=== PATIENT | female | born 1940 | race Caucasian/White ===

== ENCOUNTER 2017-12-31 22:41 | Inpatient (IN) | payer MEDICARE, MEDICAID ==
[~2017-12-31] VITALS: Ht 162.6 cm; Wt 105.3 kg
--- NOTE | ~2017-12-31 | PR ---
[place], [place] PROGRESS NOTE NAME: [facility]ANDERSON [facility] [id number] UNIT #: [id number] ROOM: 316 DOCTOR: PATY REYES MD BIRTHDATE: [birth year] DOS: 01/05/2018 CHIEF COMPLAINT: "That medicine for my anxiety helps me." SUMMARY OF THE VISIT: The patient was interviewed as she was sitting in the dining area, watching television. She stopped and engaged in conversation. There are some memory gaps noted and she herself will even say that she has times where she forgets things more than others. She did report that the new medicine that I started to help relieve the anxiety was beneficial to her and it calmed her through the day, so she did not worry as much. It did so without causing excess sedation or somnolence. She is still having some issues with sleep and appetite, but overall does seem to be improving. MENTAL STATUS: She is alert and oriented to person, place, not necessarily time. Mood does seem to be trending towards euthymia. Affect is more appropriate. There is no anuel, hypomania or psychosis. Memory has gaps. PLAN: I will maintain her current psychotropic regimen, continue to support and monitor, engage in individual and rodney milieu activities, returning to the least restrictive environment when stable. PATY REYES MD CM:PNTRANS 1037 [id number] PATY REYES MD 01/05/18 1043 interface
--- NOTE | ~2017-12-31 | PR ---
[place], [place] PROGRESS NOTE NAME: [facility]ERSON [facility] [id number] UNIT #: [id number] ROOM: 316 DOCTOR: PATY REYES MD BIRTHDATE: [birth year] DOS: 01/03/2018 CHIEF COMPLAINT: "I am still so depressed." SUMMARY OF THE VISIT: The patient was interviewed in the dining area where she was sitting with peers. She engaged readily in conversation and reports that she is still feeling extremely depressed and despondent. She is very worried about life and her significant illness. Her sleep and appetite still fluctuate. She still feels on the verge of tears. MENTAL STATUS: She is alert and oriented with some gaps. Mood does seem to be down, depressed and despondent. She was near the verge of tears at times. There is no anuel, hypomania or psychosis. Memory has mild gaps, but for the most part she is intact. PLAN: I will increase her Remeron from 15 to 22.5 mg at bedtime. Continue to engage her in individual and rodney milieu activity, returning to the least restrictive environment when stable. PATY REYES MD CM:PNTRANS 1010 1039 PATY REYES MD 01/03/18 1038 interface
--- NOTE | ~2017-12-31 | PR ---
[place], [place] PROGRESS NOTE [facility]ERSON [id number] UNIT #: [id number] ROOM: 316 DOCTOR: PATY REYES MD BIRTHDATE: [birth year] DOS: 01/06/2018 CHIEF COMPLAINT: "I see you increased my Remeron that helped." SUMMARY OF THE VISIT: The patient was interviewed as she was resting in a Meghana chair watching television in the dining area. She reports that both the increase in the Remeron and the addition of the Atarax has helped her. She is now anxious to leave here and go back to a long-term care facility, preferably not the one that she came from. She requests that she has an alternative placement. She voices no other complaints and denies suicidal thoughts or homicidal thoughts. MENTAL STATUS: She is alert and oriented with time gaps. Mood does seem to be trending towards euthymia. Affect is more appropriate. There is no anuel, hypomania or psychosis. Short term memory, long-term and intermediate are roughly intact. PLAN: We will continue to engage in individual and rodney milieu activity. We will check a Neurontin level in the a.m. to ensure that it is therapeutic, returning then to the least restrictive environment when psychiatrically stable. PATY REYES MD CM:PNTRANS 1029 1035 PATY REYES MD 01/06/18 1034 interface
--- NOTE | ~2017-12-31 | DS ---
[place], [place] DISCHARGE SUMMARY NAME: ADIS SANDERSON [facility] #: [id number] UNIT #: [id number] ROOM: 316 DOCTOR: PATY REYES MD BIRTHDATE: [birth year] DOS: 01/08/2018 CHIEF COMPLAINT: "I just want to sleep. HISTORY OF PRESENT ILLNESS: This is a 77-year-old white female who is a resident of [facility] in [place], [place]. The patient has a history of metastatic breast cancer and was recently admitted to this long-term care facility. Since that time, she has complained of worsening depression and feels hopeless and helpless and wants to give up. She has reported to her family that she is suicidal and in fact was found with a cord wrapped around her neck. The patient states that she has nothing to live for and would just assume end her life then to live in this particular shelter. The patient is admitted now to rule out any organic factors, to attempt to stabilize on medication, to engage in individual and rodney milieu activity, then returning to the least restrictive environment when stable. PAST MEDICAL HISTORY: Remarkable for chronic anemia, GERD, hypertension, obesity, breast cancer with mets to the brain and to her colon. SUMMARY OF THE STAY: The patient was admitted to the unit where she was started on Remeron 15 mg at bedtime. Routine screening examination showed her to have a low vitamin B12 level of 132, so she was started on a B12 injection of 1000 mcg monthly. She also had a low vitamin D level of 17.8 and vitamin D replacement 50,000 International Units weekly was started. The Remeron was gradually increased from 15 mg at bedtime to 22.5 mg at bedtime with excellent results. Sleep and appetite normalized very quickly. It became very evident that the patient was experiencing a significant amount of anxiety during the day. She wanted something to take the edge off that would not make her too sedated or somnolent. Atarax 10 mg 3 times daily was utilized and within a day of starting the medication, the patient achieved relief. She had improved sufficiently with these medications to feel that she was ready to return back to a long-term care facility. The patient did have an opportunity to meet with the pastoral counselor who helped put her mind at rest and she felt positive about going back into a long-term care facility. She will be returning to [facility] instead of the previous facility. MENTAL STATUS AT DISCHARGE: The patient is alert and oriented. Mood does seem to be more euthymic. Affect is much more appropriate. There are no symptoms of anuel, hypomania or psychosis. Short term, intermediate and long-term memories are intact. DIAGNOSES ON DISCHARGE: Major depression, recurrent and anxiety disorder, not otherwise specified. PLAN: All of her prescriptions have been printed and will be sent with her. She will be returning to [facility], a shelter in [place]. Medically, she is stable. Psychiatrically, she is stable. Her biopsychosocial needs are adequately being met by the [facility]. [place], [place] DISCHARGE SUMMARY NAME: MARIA EADIS K [facility] #: [id number] UNIT #: [id number] ROOM: [facility] DOCTOR: PATY REYES MD BIRTHDATE: [birth year] PATY REYES MD CM:DISCHARG 1025 [id number] PATY REYES MD 01/08/18 1105 interface
--- NOTE | ~2017-12-31 | WRIGHTHP ---
[place], [place] PATIENT HISTORY AND PHYSICAL EXAM NAME: ADIS SANDERSON [facility] #: [id number] UNIT #: [id number] ROOM: 316 DOCTOR: PATY REYES MD BIRTHDATE: [birth year] DOS: 01/01/2018 CHIEF COMPLAINT: "I just want to sleep." HISTORY OF PRESENT ILLNESS: This is a 77-year-old white female who is a resident of [facility] in [place]. The patient has a history of metastatic breast cancer, recently was admitted to this long-term care facility. The patient has complained of worsening depression, and feels hopeless and helpless, and wants to give up. She reported to family that she was suicidal and had a cord wrapped around her neck; when nurses did initially approach her, this was not found to be evident. However, when family did not respond to her shortly thereafter, they did recheck her and they found her in her room with a cord tied around her neck. The patient has voiced suicidal wish and wishes to give up, and states that her only way out is to . The patient has also verbalized a wish to be able to go on hospice so that her end of life needs can be met more adequately. She is admitted now to rule out any organic factors, to stabilize on medication, to engage in individual and rodney milieu activity, returning to the least restrictive environment when stable. PAST MEDICAL HISTORY: Remarkable for chronic anemia, GERD, hypertension, obesity, breast cancer with mets to the brain and to her colon. MENTAL STATUS: Mental status is limited based on the fact that she is so sedate. She did not get into the hospital until the early hours of the morning, and then underwent both a physical examination and multiple laboratory examinations. She does appear depressed, and her affect is rather flat and blunted. Beyond that, I could not ascertain much information at all. DIAGNOSIS: Major depression, recurrent, severe. PLAN: I have already started her on Remeron 15 mg at bedtime. Routine screening examination show her to have a low vitamin B12 level of 132, so I will start vitamin B12 injection 1000 mcg IM monthly. She also has a low vitamin D level of 17.8; I will start vitamin D replacement of 50,000 International Units weekly. We will engage her in individual and rodney milieu activity. I will also see about having pastoral counseling come in for some spiritual counseling. We will attempt to engage her in individual and rodney milieu activities, returning to the least restrictive environment when stable. [place], [place] PATIENT HISTORY AND PHYSICAL EXAM NAME: ADIS SANDERSON UNIT #: [id number] ROOM: 316 DOCTOR: PATY REYES MD BIRTHDATE: [birth year] PATY REYES MD CM:HISPHYS:PATIENT HISTORY AND PHYSICAL EXAMINATION 0926 1014 PATY REYES MD 01/01/18 1135 interface
--- NOTE | ~2017-12-31 | PR ---
[place], [place] PROGRESS NOTE [facility] [id number] UNIT #: [id number] ROOM: 316 DOCTOR: PATY ORDAZ MD BIRTHDATE: [birth year] DOS: 01/07/2018 CHIEF COMPLAINT: "I am doing better Dr. Ordaz, thank you." SUMMARY OF THE VISIT: The patient was interviewed in the dining area where she was reclining watching television. She had already completed her breakfast. She reported to me that she slept well and is feeling better. She does seem to be much more bright and pleasant and states that she is ready to leave the hospital and go back to a alf as long as it is not the same alf from which she came. MENTAL STATUS: She is alert and oriented with some time gaps. Mood does seem to be strongly trending towards euthymia. Affect is more appropriate. There is no anuel, hypomania or psychosis. Memory is intact. PLAN: I will maintain the current psychotropic regimen and plan to discharge to the least restrictive environment. PATY ORDAZ MD CM:PNTRANS [id number] PATY ORDAZ MD 01/07/18 0953 interface
--- NOTE | ~2017-12-31 | PR ---
[place], [place] PROGRESS NOTE [id number] UNIT #: [id number] ROOM: 316 DOCTOR: NELSON WEIR DO BIRTHDATE: [birth year] DOS: 01/02/2018 CHIEF COMPLAINT: "I feel okay." SUMMARY OF THE VISIT: The patient was interviewed in the dining room bardales. She states that last night she slept better. Staff reported that she felt irritable. Talking to her today, she comes from [facility] and she stated that she felt unsafe there. She felt that staff was using inappropriate language and being forceful. She did not feel safe there. She did have a history of suicidal thoughts and actions. She had wrapped a cord around her neck. She denied suicidal thoughts or ideations at that time. They did report that she was very irritable yesterday and refused to let them assist her at times. She states that she ate well and again reiterated that she feels safe here. States that her sons try to do the best thing that they knew how to do, but they were unsure where to proceed from this point. According to staff, the patient herself does not know if the patient was agreeable to hospice. MENTAL STATUS EXAMINATION: She does appear alert to self, not to place or time. She continues to be depressed with a flat affect. PLAN: She was started on vitamin B12 injections and replacement of her vitamin D. We will continue to discuss with her hospice care with her and her family in order to best accomplish their individual goals. We will continue to engage her in individual and group activities with the plan to return her to the least restrictive environment when psychiatrically stable. NELSON WEIR, DO PATY REYES MD CM:PNTRANS [id number] [id number] NELSON WEIR DO 01/02/18 1149 interface
--- NOTE | ~2017-12-31 | PR ---
[place], [place] PROGRESS NOTE NAME: [facility]ERSON [facility] [id number] UNIT #: [id number] ROOM: 316 DOCTOR: PATY REYES MD BIRTHDATE: [birth year] DOS: 01/04/2018 CHIEF COMPLAINT: "I still feel so depressed; I not know what to do." SUMMARY OF THE VISIT: The patient was interviewed in the dining area where she was sitting eating her breakfast. She continues to appear very sad and depressed and distraught. She is somewhat anxious as well. She reports that the meds do seem to be helping, but she is overwhelmed by life stressors. She is tolerating the current medication regimen well. MENTAL STATUS: She is alert and oriented. Mood does seem to be depressed with anxious overtones. She endorses multiple neurovegetative symptoms. She is worried and perplexed about how her life will finish out. There is no anuel or psychosis. Short term memory, long-term memory and intermediate memories for the most part are intact. PLAN: I will maintain her current dose of Remeron. We will add Atarax 10 mg t.i.d. to help relieve some of her anxiety without being overly sedating or addicting. We will look to see if we can get pastoral counseling involved to help meet her spiritual needs. We will engage in individual and rodney milieu activity, returning to the least restrictive environment when psychiatrically stable. PATY REYES MD CM:PNTRANS 0911 0935 PATY REYES MD 01/04/18 0933 interface
[2018-01-01] MEDS ORDERED: MIRALAX POWDER255 G1 PO ×2 (00:32→00:40)
[2018-01-01] MEDS ORDERED: OMEPRAZOLE20 M2 PO (00:33)
[2018-01-01] MEDS ORDERED: DECADRON4 MG PO (00:35)
[2018-01-01] MEDS ORDERED: OXYCODONE HCL E30 MG PO (00:38)
[2018-01-01] MEDS ORDERED: NEURONTIN300 MG PO (00:39)
[2018-01-01] MEDS ORDERED: BISCOLAX10 M1 R (00:39)
[2018-01-01] MEDS ORDERED: OXYCODONE HCL10 M1 PO (00:41)
[2018-01-01 02:49] VITALS: BP 139/57
[2018-01-01 06:39] LABS: BASO % 0.2 % (0.0-1.0); EOS % 0.3 % (1.0-4.0); HEMATOCRIT 40.2 % (37.0-47.0); HEMOGLOBIN 12.5 g/dl (12.0-16.0); LYMPH # 4.2 10*3/uL (1.3-4.4); LYMPH % 34.9 % (27.0-41.0); MEAN CELL VOLUME 82.5 fl (81.0-99.0); MEAN CORPUSCULAR HGB 25.7 pg (27.0-31.0); MEAN CORPUSCULAR HGB CONC 31.1 g/dl (33.0-37.0); MEAN PLATELET VOLUME 8.4 fl (9.6-12.3); MONO # 0.7 10*3/uL (0.1-1.0); MONO % 5.6 % (3.0-9.0); NEUT # 6.9 10*3/uL (2.3-7.9); NEUT % 58.2 % (47.0-73.0); PLATELET COUNT AUTOMATED 152 10*3/uL (130-400); RED BLOOD COUNT 4.87 10*6/uL (4.10-5.10); RED CELL DISTRI WIDTH 18.6 % (0-14.5); WHITE BLOOD COUNT 11.9 10*3/uL (4.8-10.8)
[2018-01-01 06:57] LABS: ALBUMIN 2.7 gm/dl (3.1-4.5); ALKALINE PHOSPHATASE 74 U/L (45-117); BUN 13 mg/dl (7-24); CHLORIDE 100 mmol/L (98-107); CHOLESTEROL 149 mg/dL (<200); CREATININE 0.51 mg/dL (0.55-1.02); HDL CHOLESTEROL 50 mg/dl (40-60); LDL CHOLESTEROL 70 mg/dL (9-159); POTASSIUM 4.6 mmol/L (3.5-5.1); SGOT/AST 19 IU/L (3-35); SGPT/ALT 17 U/L (12-78); SODIUM 139 mmol/L (136-145); TOTAL PROTEIN 5.6 gm/dL (6.4-8.2); TRIGLYCERIDES 147 mg/dl (<150); VLDL CHOLESTEROL 29 mg/dL (6-40)
[2018-01-01 07:59] VITALS: BP 118/56
[2018-01-01 09:01] LABS: VITAMIN D, 25-HYDROXY 17.8 ng/mL (30-100)
[2018-01-01 12:19] LABS: BILIRUBIN 1+ (NEGATIVE); BLOOD 2+ (NEGATIVE); CLARITY TURBID (CLEAR); COLOR YELLOW (YELLOW); GLUCOSE NEGATIVE (NEGATIVE); KETONE TRACE (NEGATIVE); LEUKO ESTERASE 3+ (NEGATIVE); NITRITE NEGATIVE (NEGATIVE); SPECIFIC GRAVITY 1.015 (1.005-1.030)
[2018-01-01 13:01] LABS: BACTERIA 4+; RBC 31-40 rbc/hpf (0-2); WBC TNTC wbc/hpf (0-5)
[2018-01-01 20:00] VITALS: BP 110/62
[2018-01-02 07:56] VITALS: BP 118/60
[2018-01-02 20:00] VITALS: BP 122/60
[2018-01-03 07:38] VITALS: BP 112/58
[2018-01-03 19:38] VITALS: BP 122/58
[2018-01-04 07:52] VITALS: BP 115/65
[2018-01-04 20:53] VITALS: BP 130/66
[2018-01-05 08:04] VITALS: BP 118/73
[2018-01-05 20:00] VITALS: BP 115/70
[2018-01-06 07:51] VITALS: BP 128/70
[2018-01-06 20:26] VITALS: BP 114/54
[2018-01-07 07:42] VITALS: BP 112/64
[2018-01-07 20:00] VITALS: BP 139/60
[2018-01-08 07:53] VITALS: BP 119/62
[2018-01-08] MEDS ORDERED: ATARAX,VISTARIL10 MG PO (10:19)
[2018-01-08] MEDS ORDERED: MIRTAZAPINE45 MG PO (10:19)
[2018-01-09 09:07] LABS: NEURONTIN (GABAPENTIN) 5.8 ug/mL (4.0-16.0)
== END 2018-01-08 12:02 | disposition hospice, home (50) | DRG 885 ==
LOC: 3N 22:41
PROVIDERS: Psychiatry & Neurology Psychiatry
DX: F33.9 Major depressive disorder, recurrent, unspecified (principal); C78.5 Secondary malignant neoplasm of large intestine and rectum; C79.31 Secondary malignant neoplasm of brain; R45.851 Suicidal ideations; C50.919 Malignant neoplasm of unspecified site of unspecified female breast; D64.9 Anemia, unspecified; K21.9 Gastro-esophageal reflux disease without esophagitis; I10 Essential (primary) hypertension; E66.9 Obesity, unspecified; F41.9 Anxiety disorder, unspecified; Z96.653 Presence of artificial knee joint, bilateral; Z96.649 Presence of unspecified artificial hip joint; Z88.8 Allergy status to other drugs, medicaments and biological substances; Z90.49 Acquired absence of other specified parts of digestive tract; Z79.899 Other long term (current) drug therapy